=== PATIENT | female | born 1975 | race Caucasian/White ===

== ENCOUNTER 2016-05-15 10:09 | Emergency (ER) | payer OTHER ==
[2016-05-15 10:45] VITALS: BP 112/49
--- NOTE | 2016-05-15 11:05 | ERNOTE ---
Upper Extremity HPI - Narrative Date of Service: 05/15/16 - General Extremities Pain Location: wrist: right Time Seen by Provider: 05/15/16 10:46 Source: patient Exam Limitations: no limitations - Immun/Allergies/Home Medications Immunizations: IMMUNIZATION HX Immunizations Up to Date Yes History of Influenza Vaccine Yes Hx Pneumococcal Vaccination No Allergies/Adverse Reactions: Allergies Allergy/AdvReac Type Severity Reaction Status Date / Time No Known Allergies Allergy Verified 05/15/16 10:45 Home Medications: HOME MEDICATIONS Albuterol Sulfate [Ventolin HFA] 2 puff IH Q4H PRN 10/02/15 [Last Taken Unknown] Aspirin [Aspirin EC] 81 mg PO DAILY 10/02/15 [Last Taken Unknown] Clopidogrel Bisulfate [Plavix] 75 mg PO DAILY #30 tab 10/02/15 [Last Taken Unknown] Glipizide 10 mg PO DAILY 10/02/15 [Last Taken Unknown] Insulin Aspart [Novolog Flexpen] 35 unit SQ AC 10/02/15 [Last Taken Unknown] Insulin Detemir [Levemir] 100 unit SQ BID 10/02/15 [Last Taken Unknown] Isosorbide Mononitrate [Imdur] 30 mg PO DAILY #30 tab 10/02/15 [Last Taken Unknown] Levonorgestrel [Mirena] 1 each IY ONCE 10/02/15 [Last Taken Unknown] Nitroglycerin [Nitrostat] 0.4 mg SL Q5MIN PRN 10/02/15 [Last Taken Unknown] Venlafaxine HCl 50 mg PO BID 10/02/15 [Last Taken Unknown] metFORMIN HCL [Glucophage] 1,000 mg PO BID 10/02/15 [Last Taken Unknown] - History of Present Illness Narrative: Pt. come in with c/o wrist pain that began four days ago when she was vacuuming her carpet. Pt. denies any SOB, CP, NVD, numbness but does state that the pain radiates to her R elbow with movement and makes her third and fourth finger tingly. Review of Systems - Review of Systems Constitutional: Present: no symptoms reported. Absent: recent illness, fever, chills, fatigue, malaise EYE: Present: no symptoms reported ENT: Present: no symptoms reported. Absent: ear pain, ear discharge, nose congestion, nasal drainage, sore throat, throat swelling Respiratory: Present: no symptoms reported. Absent: shortness of breath, cough , wheezing Cardiology: Present: no symptoms reported. Absent: chest pain, palpitations, edema Gastrointestinal/Abdominal: Present: no symptoms reported. Absent: nausea, vomiting, diarrhea Genitourinary: Present: no symptoms reported Musculoskeletal: Present: muscle pain - R forearm and elbow, joint pain - R wrist. Absent: back pain Skin: Present: no symptoms reported Neurological: Present: no symptoms reported. Absent: headache, dizziness/light- headedness, numbness, tingling All Other Systems: All systems neg except as marked - Patient's Past Medical History Patient History - Medical: Diabetes Type 2, GERD Patient History - Cancer: No Hx of Cancer Patient History - Surgical Procedures: Appendectomy - Family History Mother Family History - Medical: No pertinent hx Father Family History - Medical: - Social History Living Situations: home Smoking Status: Former smoker Have you smoked in the past 12 months: Yes Alcohol Use: none Drug Use: none Physical Exam - Physical Exam General Appearance: Present: wd/wn, alert, no apparent distress Eye Exam: Normal inspection: bilateral, PERRL: bilateral, EOMI: bilateral Ears, Nose, Throat: Present: normal ENT inspection, hearing grossly normal, normal pharynx Neck: Present: normal inspection, nontender. Absent: lymphadenopathy (R), lymphadenopathy (L) Respiratory: Present: no respiratory distress, normal breath sounds, no accessory muscle use, chest nontender, lungs clear Cardiovascular/Chest: Present: regular rate, rhythm, no murmur, normal peripheral pulses Gastrointestinal/Abdominal: Present: normal bowel sounds, nontender, nondistended, soft, no organomegaly Back Exam: Present: normal inspection, normal range of motion, no CVA tenderness , no vertebral tenderness Extremity Exam: Present: no edema, normal range of motion, other - ulnar nerve pain with movement Neurological Exam: Present: alert, oriented, normal mood/affect, no motor/ sensory deficits Skin Exam: Present: normal color, warm/dry. Absent: pallor, skin rash ED Progress - Vital Signs Patient's Vital Signs:: I have reviewed the patient's vital signs. Vital Signs: Vital Signs 05/15/16 10:42 Temperature 36.3 C L Pulse Rate 78 Respiratory 14 Rate Blood Pressure 112/49 O2 Sat by Pulse 95 Oximetry - Progress/Reassessment Chief Complaint: Wrist Injury/Pain Departure Clinical Impression: Carpal tunnel syndrome of right wrist - Departure Disposition: Home self-care Condition: Good Instructions: Carpal Tunnel Syndrome, [id number] Additional Instructions: Please take either 440mg of Naproxen BID or Ibuprofen 800mg every 8 hours as needed for pain. Please wear wrist brace at all times when awake. Referrals: Celeste Andres MD [Primary Care Provider] -
== END 2016-05-15 11:15 | disposition home or self-care (01) ==
LOC: ER 10:09
PROC: 2W3DX1Z Immobilization of Left Lower Arm using Splint (ICD-10-PCS; principal; 2016-05-15)
DX: G56.01 Carpal tunnel syndrome, right upper limb (principal); Z87.891 Personal history of nicotine dependence; E11.9 Type 2 diabetes mellitus without complications; Z79.4 Long term (current) use of insulin; Y93.E3 Activity, vacuuming

== ENCOUNTER 2016-06-18 22:07 | Emergency (ER) | payer OTHER ==
[2016-06-18] MEDS ORDERED: FAMOTIDINE 10 MG/ML VIAL IV ONE ×2 (22:30→22:33)
[2016-06-18] MEDS ORDERED: METHYLPREDNISOLONE SOD SUCC/PF 40 MG/ML VIAL IV ONE (22:30)
[2016-06-18] MEDS ORDERED: diphenhydrAMINE HCL 50 MG/ML VIAL IV ONE (22:31)
[2016-06-18] MEDS ORDERED: diphenhydrAMINE HCL 50 MG/ML VIAL ONE (22:32)
[2016-06-18] MEDS ORDERED: METHYLPREDNISOLONE SOD SUCC/PF 125 MG/2 ML VIAL ONE (22:33)
--- NOTE | 2016-06-18 22:44 | ERNOTE ---
Allergy Symptoms - ER Date of Service: 06/18/16 Presenting Symptoms: face swelling Time Seen by Provider: 06/18/16 22:30 Immunizations: IMMUNIZATION HX Immunizations Up to Date Yes History of Influenza Vaccine Yes Hx Pneumococcal Vaccination No Allergies/Adverse Reactions: Allergies No Known Allergies Allergy (Verified 05/15/16 10:45) Home Medications: HOME MEDICATIONS Albuterol Sulfate [Ventolin HFA] 2 puff IH Q4H PRN 10/02/15 [Last Taken Unknown] Aspirin [Aspirin EC] 81 mg PO DAILY 10/02/15 [Last Taken Unknown] Clopidogrel Bisulfate [Plavix] 75 mg PO DAILY #30 tab 10/02/15 [Last Taken Unknown] Insulin Aspart [Novolog Flexpen] 35 unit SQ AC 10/02/15 [Last Taken Unknown] Insulin Detemir [Levemir] 50 unit SQ BID 10/02/15 [Last Taken Unknown] Isosorbide Mononitrate [Imdur] 30 mg PO DAILY #30 tab 10/02/15 [Last Taken Unknown] Levonorgestrel [Mirena] 1 each IY ONCE 10/02/15 [Last Taken Unknown] Nitroglycerin [Nitrostat] 0.4 mg SL Q5MIN PRN 10/02/15 [Last Taken Unknown] Venlafaxine HCl 50 mg PO BID 10/02/15 [Last Taken Unknown] metFORMIN HCL [Glucophage] 1,000 mg PO BID 10/02/15 [Last Taken Unknown] - History of Present Illness Narrative: Had Taco petersen 20 minutes ago and now feels like her throat is closing. Pt is speaking without stridor. She does have a dry cough Review of Systems - Review of Systems Constitutional: Present: See HPI ENT: Present: See HPI Respiratory: Present: See HPI - Patient's Past Medical History Patient History - Medical: Diabetes Type 2, GERD Patient History - Cardiac/Respiratory: Coronary Heart Disease, COPD Patient History - Cancer: No Hx of Cancer Patient History - Surgical Procedures: Appendectomy, Cardiac stent Patient History - Other: None - Family History Mother Family History - Medical: No pertinent hx Father Family History - Medical: - Social History Living Situations: home Abuse History: No History of abuse Psych History: No pertinent hx Smoking Status: Former smoker Have you smoked in the past 12 months: Yes Do you dip or chew tobacco: No Patient requests Smoking Cessation Consult: No Initiate information on Smoking Cessation: No Alcohol Use: none Drug Use: none - Immunizations Immunizations Up to Date: Yes Hx Pneumococcal Vaccination: No History of Influenza Vaccine: Yes Physical Exam - Physical Exam General Appearance: Present: wd/wn, alert, no apparent distress Ears, Nose, Throat: Present: hearing grossly normal, normal pharynx, other - minimal swelling of lips noted, no stridor, excellent airway. no wheezing. no distress Neck: Present: normal inspection Respiratory: Present: no respiratory distress, normal breath sounds, no accessory muscle use, chest nontender Cardiovascular/Chest: Present: regular rate, rhythm Gastrointestinal/Abdominal: Present: normal bowel sounds Neurological Exam: Present: other - appears anxious ED Progress - Vital Signs Patient's Vital Signs:: I have reviewed the patient's vital signs. Vital Signs: Vital Signs 06/18/16 06/18/16 22:14 22:24 Temperature 36.5 C Pulse Rate 122 H Respiratory 18 20 Rate Blood Pressure 107/65 O2 Sat by Pulse 97 97 Oximetry - Progress/Reassessment Chief Complaint: Allergic Reaction Departure Clinical Impression: Allergic reaction Qualifiers: Encounter type: initial encounter Qualified Code(s): T78.40XA - Allergy, unspecified, initial encounter - Departure Disposition: Home self-care Referrals: Celsete Andres MD [Primary Care Provider] -
[2016-06-19 00:35] VITALS: BP 111/63
== END 2016-06-19 00:35 | disposition home or self-care (01) ==
LOC: ER 22:07
DX: T78.40XA Allergy, unspecified, initial encounter (principal); Z87.891 Personal history of nicotine dependence; E11.9 Type 2 diabetes mellitus without complications; Z79.4 Long term (current) use of insulin; I51.9 Heart disease, unspecified; J44.9 Chronic obstructive pulmonary disease, unspecified

== ENCOUNTER 2016-08-11 07:05 | Day surgery (SDC) | payer OTHER ==
[~2016-08-11 07:05] MED LIST: RINGERS SOLUTION,LACTATED 1,000 ML IV PRN; ceFAZolin SODIUM 1 GM VIAL IV PRN
--- OUTSIDE RECORDS SUMMARY | 2016-08-11 07:09 | XMS REPORT | Continuity of Care Document ---
:1975 Author Organization [facility] ([facility]) Address [address] [place] [address] Phone [phone] Care Team Providers Name Role Phone Celeste Andres Primary Care Provider [phone] Source Comments This disclosure is being made pursuant to the Care Everywhere program, applicable federal and state laws, and may not contain all informaitonavailable regarding this patient.[facility] ([facility]) Active Allergies and Adverse Reactions Allergen Noted Date Severity Reactions Comments Cat Hair 04/01/2013 OTHER Sneezing and coughing Sitagliptin 04/30/2010 OTHER Leg swelling and numbness Current Medications Prescription Sig. Disp. Refills Start End Status Date Date levonorgestrel use in your uterus Active (MIRENA) 20 mcg/24 once. hr device aspirin 81 mg Take 1 Tab by mouth 60 Tab 5 Active chewable tablet daily. OTC 1 Indications: DM 2 SUPPLY insulin Use to inject 120 Syringe 3 Active syringe w/ needle insulin four times 4 U-100 (INSULIN daily Indications: SYRINGE) 0.5 mL 30 TYPE 2 DIABETES g x 09/26" MELLITUS SUPPLY insulin inject 100 Syringe 11 Active syringe w/ needle subcutaneously 2 4 U-100 0.3 mL 30 g times daily. x 09/26" Indications: TYPE 2 DIABETES MELLITUS venlafaxine 50 mg Take 1 Tab by mouth 120 Tab 3 Active tablet 2 times daily. 4 Indications: NEUROPATHIC PAIN albuterol 90 Use 2 Puffs by 1 Inhaler 11 Active mcg/Actuation inhalation every 6 4 inhaler hours as needed. Indications: CHRONIC OBSTRUCTIVE PULMONARY DISEASE atorvastatin 40 mg Take 1 Tab by mouth 90 Tab 3 Active tablet every evening. 4 Indications: HYPERCHOLESTEROLEMI A, PREVENTION OF CEREBROVASCULAR ACCIDENT fluticasone 50 Use 2 sprays in 16 g Active mcg/Actuation each nostril daily. 5 nasal spray Indications: CHRONIC NON-ALLERGIC RHINITIS nitroglycerin 0.[address] 1 tablet (0.4 25 tablet 2 Active mg SL tablet mg total) under the 6 tongue every 5 minutes as needed. Maximum of 3 tablets in 15 minutes insulin detemir Inject 50 Units Active (LEVEMIR) 100 subcutaneously 2 6 unit/mL injection times daily. vial insulin aspart Inject 14-26 Units Active (NovoLOG) 100 subcutaneously 3 6 unit/mL injection times daily before vial meals. 14 units before every meals (3x per day)PLUS 2-12 units based on blood sugarsGLUCOSE LEVEL (mg/dl)150-199 give 2 [id number] give 4 [id number] give 6 [id number] give 8 [id number] or Greater give 10 units metoPROLol Take 0.5 tablets 30 tablet Active tartrate 25 mg (12.5 mg total) by 6 tablet mouth every 12 hours. pantoprazole 40 mg Take 1 tablet (40 30 tablet Active EC tablet mg total) by mouth 6 daily. omeprazole 40 mg 3 Active enteric coated 6 capsule SUPPLY lancets Use as directed 4 150 Each Active (UNILET) 30 gauge times daily. Use 6 twice daily or as directed. Indications: DIABETES MELLITUS clopidogrel 75 mg Take 1 tablet (75 30 tablet Active tablet mg total) by mouth 6 daily. nicotine 21 mg/24 0 Active hr patch 6 metFORMIN 1,000 mg Take one tablet 180 tablet 2 Active tablet with dinner for 1 6 week then increase to one tablet twice a day nystatin 100,000 APPLY TO AFFECTED 0 Active unit/g powder AREA TOPICALLY 6 DAILY SUPPLY FREESTYLE Use once daily. 1 Each 0 Active LITE meter 7 SUPPLY FREESTYLE Use as directed 4 150 Each Active LITE test strips times daily. 7 SUPPLY insulin Use with insulin 300 Syringe Active syringe w/ needle three times daily 7 U-100 0.5 mL 31 g x 1564" SUPPLY insulin Use with insulin 200 Syringe 3 Active syringe w/ needle two times daily 7 U-100 1 mL 31 g x 1564" HUMALOG 100 INJECT 18 UNITS 2 Active unit/mL injection BEFORE EACH MEAL 6 vial PLUS SLIDING SCALE BD INSULIN SYRINGE Use as directed. 0 Active ULTRA-FINE 1 mL 31 7 g x 5/16" irbesartan 75 mg Take 37.5 mg by Active tablet mouth daily. cetirizine 10 mg Take 1 tablet (10 30 tablet 11 Active tablet mg total) by mouth 7 daily. isosorbide Take 0.5 tablets 30 tablet 6 Active mononitrate 30 mg (15 mg total) by 7 CR tablet mouth every morning. irbesartan 75 mg Take 1 tablet (75 30 tablet 11 Discontinued tablet mg total) by mouth 6 017 daily. isosorbide Take 0.5 tablets 45 tablet 3 Discontinued mononitrate 30 mg (15 mg total) by 6 017 CR tablet mouth every morning. Active Problems Problem Noted Date Recurrent chest pain 10/06/2015 Typical angina 10/06/2015 Coronary artery disease involving nikolai coronary artery of nikolai heart 10/05 with unstable angina pectoris S/P drug eluting coronary stent placement 10/06/2015 Positive cardiac stress test 10/04/2015 Esophageal reflux 03/26/2014 Mixed incontinence 03/12/2014 Urgency incontinence 03/12/2014 Frequency 03/12/2014 Essential hypertension 12/18/2013 Non-proliferative diabetic retinopathy 04/01/2013 High myopia with early presbyopia 04/01/2013 Unspecified essential hypertension 03/18/2013 Mixed hyperlipidemia 03/18/2013 Constipation 03/18/2013 Diabetic neuropathy 06/27/2012 Diabetes mellitus type 2, uncontrolled 06/27/2012 Tobacco use disorder 04/30/2010 Overview: chantix 'changed my moods' Cold turkey 'does not work' Willing to try wellbutrin Routine health maintenance 04/30/2010 Overview: Pap- 2009 Done locally Flu-declines Smoking- see above Lipids/glucose 04/22 tdap- 2005 Most Recent Encounters Date Type Specialty Providers Description 07/26/2016 Telephone [facility] and V[facility] Aissatou Kirk DO 07/19/2016 Office Visit [facility] Aissatou Kirk Dx: Hyperlipemia, S, DO mixed (Primary Dx) 07/07/2016 Telephone Diabetes Services Gracie David, Chief Comp: Follow-up RN 07/07/2016 Refill Diabetes Services Estephanie Howard MD Dx: Diabetes mellitus type 2, uncontrolled (Primary Dx) 07/07/2016 Pharmacy Visit 06/20/2016 Office Visit Diabetes Services Estephanie Howard MD Subj: Upcoming Appt Reminder Immunizations Name Dates Previously Given Next Due Influenza, quadrivalent PF 03/26/2014 Social History Tobacco Use Types Packs/Day Years Used Date Former Smoker Cigarettes 0.5 23 Smokeless Tobacco: Never Used Tobacco Cessation:Counseling Given: Yes Comments:Smoked 2 PPD for 22 years. Now down to 0.5PPD for the last year. Vapor/Patches Alcohol Use Drinks/Week oz/Week Comments No 0 Standard drinks or equivalent 0.0 Last Filed Vital Signs Vital Sign Reading Time Taken Blood Pressure 80/50 07/19/2016 9:32 AM [employer]IC [employer] Pulse 80 07/19/2016 9:32 AM [employer] TE[employer] Temperature 36.7 C (98.1 F) 10/06/2015 7:38 AM CDT Respiratory Rate 16 10/06/2015 7:38 AM CDT Height 1.702 m (5' 7") 07/19/2016 9:32 AM [employer] TE[employer] Weight 90.719 kg (200 lb) 07/19/2016 9:32 AM [employer] TE[employer]ER Body Mass Index 31.32 07/19/2016 9:32 AM [employer] TE[employer]ER Oxygen Saturation 96% 10/06/2015 10:13 AM CDT Plan of Care Patient Goal Type Goal Weight Weight below 91 kg (200 lb) Result Component % HBA1C below 7.0 Lifestyle Increase physical activity Date Type Specialty Providers Description 08/28/2016 Wait List Diabetes Services 08/28/2016 Appointment Diabetes Services Estephanie Howard MD Subj: Appointment [address] [place] [address] [phone] (Fax) 09/13/2016 Appointment Heart [facility] V[facility] Aissatou Kirk, Subj: Appointment DO Scheduled [address] [place] [address] [phone] (Fax) Health Maintenance Due Date Last Done Comments Hepatitis B Vaccine (1 of 3 - 1975 Primary Series) MMR Vaccine 1992 Pneumococcal Vaccine (1 of 1 1993 - PPSV23) DIABETIC: Retinal Eye Exam 04/01/2014 04/01/2013, 04/01/2013 Mammogram 2014 DIABETIC: Cholesterol 08/07/2014 08/07/2013, Additional history exists 05/13/2013, 03/18/2013 Diabetic: Hdl 08/07/2014 08/07/2013, Additional history exists 05/13/2013, 03/18/2013 Diabetic: Ldl 08/07/2014 08/07/2013, Additional history exists 05/13/2013, 03/18/2013 DIABETIC: Triglycerides 08/07/2014 08/07/2013, Additional history exists 05/13/2013, 03/18/2013 Influenza Vaccine: Seasonal 12/13/2015 03/26/2014 (#1) DIABETIC: Hemoglobin A1C 06/16/2016 12/15/2015, Additional history exists 09/01/2015, 04/21/2014 DIABETIC: Foot Exam 08/31/2016 09/01/2015, Additional history exists 08/07/2013, 08/07/2013 DIABETIC: Microalbumin 12/14/2016 12/15/2015, Additional history exists 09/01/2015, 04/21/2014 Td Vaccine 01/31/2017 01/31/2007 Cervical Cancer Screening 09/17/2018 09/17/2013 Tdap Vaccine Addressed 04/11/2011 Overridden with the (Previously intention of not completed) completing the topic Results from Last 3 Months Not on file
[2016-08-11] MEDS ORDERED: BUPIVACAINE HCL 50 ML VIAL IJ ONE ×2 (09:37)
--- NOTE | 2016-08-11 10:52 | OR ---
Operative Report - Dictated Report Narrative: Date: 08/11/2016 Physician: Colton Cordova M.D. Couture Dressmaker: Gerry Moore PA-C Preoperative diagnosis: Right cubital tunnel syndrome Postoperative diagnosis: Right cubital tunnel syndrome Procedure: Right ulnar nerve decompression at the cubital tunnel Anesthesia: General Plus local Complications: None Estimated blood loss: Minimal Tourniquet time: 15 Minutes at 250 mmHg Specimens: None Retained implants: None Drains: None Indications: Mrs. Alexander Is a 41-year-old female who has been followed in my clinic with complaints of cubital tunnel syndrome. Physical exam as well as diagnostic testing showed compression of the ulnar nerve compatible with cubital tunnel syndrome. Conservative measures had failed including, but not limited to, activity modification, medications, and/or splinting. The risks, benefits, and alternatives were discussed in clinic. The risks being bleeding, infection, nerve, tendon, blood vessel injury, persistent pain, wound competitions, weakness, palm pain, need for additional procedures, and persistent symptoms. Consent was obtained in the clinic. Procedure: After marking the correct extremity in the preoperative holding area, a timeout was performed in the operating room. IV antibiotics consisting of Ancef were administered prior to the procedure. A well-padded tourniquet was applied to the operative upper arm. The arm was exsanguinated and the tourniquet was inflated to 250 mmHg. 0.5% Marcaine without epinephrine was infused into the projected incision site over the medial elbow. Using loupe magnification, a longitudinal incision centered over the cubital tunnel was made approximately 5 centimeters in length. Blunt dissection was carried down to the subcutaneous tissues using bipolar cautery for hemostasis. Care was taken to protect the identified underlying cutaneous nerves. The ulnar nerve was identified as it passed through the medial intermuscular septum along the distal triceps. A release of the canal in this area as the ulnar nerve passed anterior to posterior was performed in order to decompress the nerve at this site. The nerve was dissected releasing the overlying soft tissues while maintaining the vascularity of the nerve down to the area of the medial epicondyles and Mckenzie' s ligament. The nerve was completely decompressed as it passed posterior to the medial condyle and was followed into the flexor carpi ulnaris. The deep fascia of the flexor carpi ulnaris muscle was released in order to decompress the nerve at this site. The first branch of the ulnar nerve was protected as well as any identified recurrent branches. The elbow was placed through range of motion and it was noted that the nerve was not unstable nor did it appear to be under tension as it passed behind the medial epicondyle. For this reason it was not felt that a transposition was not necessary. Once it was felt that we had completely released the compressive structures on the ulnar nerve, the wound was thoroughly irrigated and the tourniquet was deflated. Hemostasis was obtained using pressure and bipolar cautery. Once adequate hemostasis was in place local anesthetic was placed in the skin edges, and the subcutaneous tissue was closed with interrupted Vicryl. The skin was closed with 4-0 nylon and sterile dressings consisting of Xeroform, 4 x 4, soft roll, and a forearm Jed wrap was applied. All sponge, needle, blade, and instrument counts were correct prior to closing the wounds. The patient was awoken and transferred to the postanesthesia care unit in stable condition.
[2016-08-11 11:38] VITALS: BP 115/55
== END 2016-08-11 07:06 | disposition home or self-care (01) ==
LOC: AMB 07:05
PROVIDERS: ATTEND Orthopaedic Surgery
PROC: 01N40ZZ Release Ulnar Nerve, Open Approach (ICD-10-PCS; principal; 2016-08-11 09:15)
DX: G56.21 Lesion of ulnar nerve, right upper limb (principal); E10.9 Type 1 diabetes mellitus without complications; I10 Essential (primary) hypertension; E78.5 Hyperlipidemia, unspecified; J44.9 Chronic obstructive pulmonary disease, unspecified; J45.909 Unspecified asthma, uncomplicated; Z87.891 Personal history of nicotine dependence; Z68.33 Body mass index [BMI] 33.0-33.9, adult

== ENCOUNTER 2016-09-27 13:56 | Emergency (ER) | payer OTHER ==
--- OUTSIDE RECORDS SUMMARY | 2016-09-27 14:32 | XMS REPORT | Continuity of Care Document ---
:1975 Author Organization [facility] ([facility]) Address [place] [address] Phone [phone] Care Team Providers Name Role Phone Celeste Andres Primary Care Provider [phone] Source Comments This disclosure is being made pursuant to the Care Everywhere program, applicable federal and state laws, and may not contain all informaitonavailable regarding this patient.[facility] ([facility]) Active Allergies and Adverse Reactions Allergen Noted [...] 5 nasal spray Indications: CHRONIC NON-ALLERGIC RHINITIS insulin detemir Inject 50 Units Active (LEVEMIR) 100 subcutaneously 2 6 unit/mL injection times daily. vial metoPROLol Take 0.5 tablets 30 tablet Active tartrate 25 mg (12.5 mg total) by 6 tablet mouth every 12 hours. pantoprazole 40 mg Take 1 tablet (40 30 tablet Active EC tablet mg total) by mouth 6 daily. SUPPLY lancets Use as directed 4 150 Each Active (UNILET) 30 gauge times daily. Use 6 twice daily or as directed. Indications: DIABETES MELLITUS clopidogrel 75 mg Take 1 tablet (75 30 tablet Active tablet mg total) by mouth 6 daily. metFORMIN 1,000 mg Take one tablet 180 tablet Active tablet with dinner for 1 6 week then increase to one tablet twice a day SUPPLY FREESTYLE Use once daily. 1 Each 0 Active LITE meter 7 SUPPLY FREESTYLE Use as directed 4 150 Each Active LITE test strips times daily. 7 SUPPLY insulin Use with insulin 300 Syringe Active syringe w/ needle three times daily 7 U-100 0.5 mL 31 g x 15/64" SUPPLY insulin Use with insulin 200 Syringe Active syringe w/ needle two times daily 7 U-100 1 mL 31 g x 15/64" BD INSULIN SYRINGE Use as directed. 0 Active ULTRA-FINE 1 mL 31 7 g x 5/16" irbesartan 75 mg Take 75 mg by mouth Active tablet daily. cetirizine 10 mg Take 1 tablet (10 30 tablet Active tablet mg total) by mouth [address] 1 tablet (0.4 25 tablet 2 Active mg SL tablet mg total) under the 7 tongue every 5 minutes as needed. Maximum of 3 tablets in 15 minutes isosorbide Take 1 tablet (30 30 tablet 6 Active mononitrate 30 mg mg total) by mouth 7 CR tablet every morning. furosemide 20 mg Take 1 tablet (20 30 tablet 6 Active tablet mg total) by mouth 7 daily. insulin lispro Inject Active (HumaLOG) 100 subcutaneously 3 unit/mL injection times daily before vial meals. Sliding scale clopidogrel 75 mg Take 1 tablet (75 30 tablet 11 Active tablet mg total) by mouth 7 daily. traMADol 50 mg Take 1 tablet (50 15 tablet 0 Active tablet mg total) by mouth 7 4 times daily as needed. nitroglycerin 0.4 Place 1 tablet (0.4 25 tablet 2 Discontinued mg SL tablet mg total) under the 6 017 tongue every 5 minutes as needed. Maximum of 3 tablets in 15 minutes insulin aspart Inject 14-26 Units 11 Discontinued (NovoLOG) 100 subcutaneously 3 6 017 unit/mL injection times daily before vial meals. 14 units before every meals (3x per day)PLUS 2-12 units based on blood sugarsGLUCOSE LEVEL (mg/dl)150-199 give 2 [id number] give 4 [id number] give 6 -527 give 8 [id number] or Greater give 10 units omeprazole 40 mg 3 Discontinued enteric coated 6 017 capsule nicotine 21 mg/24 0 Discontinued hr patch 6 017 nystatin 100,000 APPLY TO AFFECTED 0 Discontinued unit/g powder AREA TOPICALLY 6 017 DAILY HUMALOG 100 INJECT 18 UNITS 2 Discontinued unit/mL injection BEFORE EACH MEAL 6 017 vial PLUS SLIDING SCALE isosorbide Take 0.5 tablets 30 tablet 6 Discontinued mononitrate 30 mg (15 mg total) by 7 017 CR tablet mouth every morning. oxyCODONE-acetamin Take by mouth every 0 Discontinued ophen 5-325 mg per 4 hours as needed. 7 017 tablet Active Problems Problem Noted Date Recurrent chest pain 10/06/2015 Typical angina 10/06/2015 Coronary artery disease involving [place] coronary artery of [place] heart 10/05 with unstable angina pectoris S/P [...] Recent Encounters Date Type Specialty Providers Description 09/27/2016 Pharmacy Visit 09/20/2016 Office Visit Diabetes Services Estephanie Howard, Subj: Appointment MD Canceled 09/18/2016 Refill Cardiac [facility] Dx: Pain of left Rehabilitation Aissatou Motley DO upper extremity (Primary Dx) 09/15/2016 Nurse Triage Care Coordination Andreia Patino Chief Comp: HEBER Alexis RNvolunteer coordinator Follow-up Call 09/14/2016 Telephone Cardiology Khadra Peterson Chief Comp: GERMAN Dinero Follow-up 09/13/2016 Office Visit Heart and Vascular [facility] Subj: Appointment Aissatou Motley DO Scheduled 09/13/2016 Pharmacy Visit 09/12/2016 Telephone Diabetes Services Estephanie Howard, Dx: Poorly MD controlled type 2 diabetes mellitus (Primary Dx) 09/11/2016 - [facility] Misha Baugh, Dx: S/P drug 09/12/2016 Encounter Inpatient - Adult MD eluting coronary stent placement (Primary Dx) 09/11/2016 Surgery Cardiology Camille Coronary Claudia Fernandes MD Angiography 09/08/2016 Telephone Cardiology Khadra Peterson Chief Comp: GERMAN Dinero Information Before Appointment 09/06/2016 Office Visit Heart and V[facility] Dx: Chest pain Aissatou S DO (Primary Dx) 09/05/2016 Office Visit Diabetes Services Estephanie Howard, Dx: Non-proliferative diabetic retinopathy (Primary Dx) 09/05/2016 Telephone Cardiac Daniel Kirk DO 08/30/2016 Pharmacy Visit 08/30/2016 Telephone Heart and Vascular ReaganDeaAissatou S, DO 08/30/2016 Refill Heart and Vascular [facility], Dx: Coronary artery Aissatou Motley DO disease involving [place] coronary artery of [place] heart, angina presence unspecified (Primary Dx) 08/28/2016 Office Visit Diabetes Services Estephanie Howard, Dx: Type 2 diabetes MD mellitus with microalbuminuria, with long-term current use of insulin (Primary Dx) 07/26/2016 Telephone Heart and Vascular Aissatou Kirk DO 07/19/2016 Office Visit Heart and Vascular [facility], Dx: Hyperlipemia, Aissatou Motley DO mixed (Primary Dx) 07/07/2016 Telephone Diabetes Services Gracie David Chief Comp: GERMAN Newton Follow-up 07/07/2016 Refill Diabetes Services Estephanie Howard, Dx: Diabetes MD mellitus type 2, uncontrolled (Primary Dx) 07/07/2016 Pharmacy Visit Immunizations Name Dates Previously Given Next Due [...] Vital Sign Reading Time Taken Blood Pressure 111/60 09/12/2016 9:13 AM CDT Pulse 81 09/12/2016 9:13 AM CDT Temperature 35.1 C (95.2 F) 09/12/2016 7:42 AM CDT Respiratory Rate 16 09/12/2016 7:42 AM CDT Height 1.702 m (5' 7") 09/11/2016 5:30 PM CDT Weight 90.719 kg (200 lb) 09/11/2016 5:30 PM CDT Body Mass Index 31.32 09/11/2016 5:30 PM CDT Oxygen Saturation 93% 09/12/2016 9:13 AM CDT Plan of Care Patient Goal Type Goal Weight Weight below 91 kg (200 lb) Result Component % HBA1C below 7.0 Lifestyle Increase physical activity Date Type Specialty Providers Description 10/02/2016 Appointment Cardiac Rehabilitation Scott Ramirez MD [address] [place] [address] [phone] (Fax) Subj: Upcoming Appt SilverAissatou pisano DO Tiesha [address] [place] [address] [phone] (Fax) Reminder Health Maintenance Due Date Last Done Comments Hepatitis B Vaccine (1 of 3 - 1975 Primary Series) MMR Vaccine 1992 Pneumococcal Vaccine (1 of 1993 - PPSV23) DIABETIC: Retinal Eye Exam 04/01/2014 04/01/2013, 04/01/2013 Mammogram 2014 DIABETIC: Cholesterol 08/07/2014 08/07/2013, Additional history exists 05/13/2013, 03/18/2013 Diabetic: Hdl 08/07/2014 08/07/2013, Additional history exists 05/13/2013, 03/18/2013 Diabetic: Ldl 08/07/2014 08/07/2013, Additional history exists 05/13/2013, 03/18/2013 DIABETIC: Triglycerides 08/07/2014 08/07/2013, Additional history exists 05/13/2013, 03/18/2013 DIABETIC: Hemoglobin A1C 06/16/2016 12/15/2015, Additional history exists 09/01/2015, 04/21/2014 DIABETIC: Foot Exam 08/31/2016 09/01/2015, Additional history exists 08/07/2013, 08/07/2013 Influenza Vaccine: Seasonal 12/12/2016 03/26/2014 (Season Ended) DIABETIC: Microalbumin 12/14/2016 12/15/2015, Additional history exists 09/01/2015, 04/21/2014 Td Vaccine 01/31/2017 01/31/2007 Cervical Cancer Screening 09/17/2018 09/17/2013 Tdap Vaccine Addressed 04/11/2011 Overridden with the (Previously intention of not completed) completing the topic Results from Last 3 Months BLOOD GLUCOSE, BEDSIDE (09/12/2016 7:39 AM)Only the most recent of4 resultswithin the time period is included. Component Value Range Glucose, Accu-Chek 185(H) 65-99 mg/dL Specimen Blood, capillary CREATININE (09/12/2016 4:39 AM)Only the most recent of2 resultswithin the time period is included. Component Value Range Creatinine 0.6Comment: 0.5-1.0 mg/dL Creatinine switched to enzymatic method on 09/20/2010.GFR equation switched to IDMS-traceable MDRD equation on 09/20/2010. Calculated GFR values are not valid in clinical settings where serum creatinine is changing. Calculated GFR >90 >60 mL/min/1.73 m2 Specimen Blood HEMOGLOBIN (09/12/2016 4:39 AM) Component Value Range Hemoglobin 14.1 11.9-15.5 g/dL Specimen Whole Blood POTASSIUM (09/12/2016 4:39 AM)Only the most recent of2 resultswithin the time period is included. Component Value Range Potassium 4.6 3.5-5.0 mEq/L Specimen Blood ECG - EKG 12 LEAD (09/11/2016 12:41 PM) Component Value Range ECG SEVERITY - OTHERWISE NORMAL ECG - VENT. RATE 60 bpm RR 1000 ms P-R INTERVAL 200 ms QRSD INTERVAL 70 ms QT INTERVAL 408 ms QTC INTERVAL 408 ms P AXIS 49 degrees QRS AXIS 28 degrees T WAVE AXIS 62 degrees REPORT SINUS RHYTHM [Remains] BORDERLINE FIRST DEGREE AV BLOCK NO SIGNIFICANT CHANGE Interpreting Physician: Singh Lomax MD CARDIAC CATHETERIZATION (09/11/2016 12:07 PM) Narrative Normal LVEDP Mid LAD ISR of previous stent, otherwise no obstructive coronary disease Successful PCI with single CATE to mid LAD ISR and balloon angioplasty to first diagonal ostium. BLOOD UREA NITROGEN (09/11/2016 10:08 AM) Component Value Range BUN 10 10-20 mg/dL Specimen Blood CBC (COMPLETE BLOOD COUNT) (09/11/2016 10:08 AM) Component Value Range WBC Count 11.7(H) 3.7-10.5 K/MM3 RBC Count 4.82 4.00-5.20 M/MM3 Hemoglobin 14.8 11.9-15.5 g/dL Hematocrit 46 35-47 % MCV (Mean Corpuscular Volume) 94 82-99 FL MCH (Mean Corpuscular Hemoglobin) 31 25-35 PG MCHC (Mean Corpuscular Hemoglobin Concentration) 33 32-36 % Platelet Count 268 150-400 K/MM3 MPV (Mean Platelet Volume) 11.5 9.4-12.3 FL RBC Dist Width-STD 44.0 36.4-46.3 FL RBC Distrib Width 12.6 9.0-14.5 % Nucleated RBC 0 /100 WBC Specimen Whole Blood CHLORIDE (09/11/2016 10:08 AM) Component Value Range Chloride 98 95-107 mEq/L Specimen Blood SODIUM (09/11/2016 10:08 AM) Component Value Range Sodium 138 135-145 mEq/L Specimen Blood
--- NOTE | 2016-09-27 14:36 | ERNOTE ---
Lower Extremity HPI - General Lower Extremities Pain: foot: left, ankle: left Time Seen by Provider: 09/27/16 14:22 Source: patient Exam Limitations: no limitations - Immun/Allergies/Home Medications Immunizations: IMMUNIZATION HX Immunizations Up to Date Yes History of Influenza Vaccine Yes Hx Pneumococcal Vaccination Yes Allergies/Adverse Reactions: Allergies Allergy/AdvReac Type Severity Reaction Status Date / Time insulin glargine AdvReac Mild BURNING Verified 09/27/16 14:08 [From Lantus] AND REDNESS Home Medications: HOME MEDICATIONS Albuterol Sulfate [Ventolin HFA] 2 puff IH Q4H PRN 10/02/15 [Last Taken Unknown] Aspirin [Aspirin EC] 81 mg PO DAILY 10/02/15 [Last Taken Unknown] Clopidogrel Bisulfate [Plavix] 75 mg PO DAILY #30 tab 10/02/15 [Last Taken Unknown] Insulin Detemir [Levemir] 50 unit SQ BID 10/02/15 [Last Taken Unknown] Nitroglycerin [Nitrostat] 0.4 mg SL [id number] PRN 10/02/15 [Last Taken Unknown] Venlafaxine HCl 50 mg PO BID 10/02/15 [Last Taken Unknown] metFORMIN HCL [Glucophage] 1,000 mg PO BID 10/02/15 [Last Taken Unknown] Atorvastatin Calcium [Lipitor] 40 mg PO HS 08/09/16 [Last Taken Unknown] Cetirizine HCl [Zyrtec] 10 mg PO DAILY 08/09/16 [Last Taken Unknown] Insulin Lispro [Humalog] 20 unit SQ AC 08/09/16 [Last Taken Unknown] Irbesartan [Avapro] 37.5 mg PO DAILY 08/09/16 [Last Taken Unknown] Isosorbide Mononitrate [Imdur] 15 mg PO DAILY 08/09/16 [Last Taken 08/11/16] Levonorgestrel [Mirena] 1 each IY ONCE 08/09/16 [Last Taken Unknown] Metoprolol Tartrate [Lopressor] 12.5 mg PO BID 08/09/16 [Last Taken 08/11/16] Pantoprazole Sodium [Protonix] 40 mg PO DAILY 08/09/16 [Last Taken Unknown] oxyCODONE HCL/ACETAMINOPHEN [Percocet 5 MG/325 MG] 2 tab PO Q4H PRN #30 tablet 08/11/16 [Last Taken Unknown] - History of Present Illness Narrative: Patient was at home sitting when she suddenly noticed a sharp pain from her left heel up her leg, she then noticed bruising and swelling in the left ankle. She recently had a stent placed and is on plavix and aspirin. She is also an insulin dependent diabetic and has decreased feeling in both her legs from the knees down. She is not aware of any injuries. She is able to ambulate but with pain. Date (Duration): 09/26/16 Time (Timing): 20:00 Occurred: yesterday Location of Incident: home Method of Injury: Reports: no apparent injury Review of Systems - Review of Systems Constitutional: Present: recent illness. Absent: fever Respiratory: Absent: shortness of breath Cardiology: Absent: chest pain Gastrointestinal/Abdominal: Absent: nausea, vomiting Genitourinary: Present: no symptoms reported Musculoskeletal: Present: See HPI Skin: Present: See HPI Neurological: Absent: weakness, numbness - Patient's Past Medical History Patient History - Medical: Diabetes Type 2 Insulin Dependent, GERD, Other Patient History - Cardiac/Respiratory: Coronary Heart Disease, COPD, Hypertension, Hyperlipidemia Patient History - Cancer: No Hx of Cancer Patient History - Surgical Procedures: Appendectomy, Cardiac stent Patient History - Other: None LMP (females 10-50): mirena - Family History Mother Family History - Medical: No pertinent hx Family History - Cardiac/Respiratory: No pertinent hx Family History - Cancer: No pertinent family hx Father Family History - Medical: , Diabetes Type 2 Family History - Cardiac/Respiratory: Coronary Heart Disease, Hypertension Family History - Cancer: Lung, Stomach, Throat - Social History Living Situations: home Abuse History: No History of abuse Psych History: No pertinent hx Smoking Status: Current every day smoker Alcohol Use: none Drug Use: none - Immunizations Immunizations Up to Date: Yes Hx Pneumococcal Vaccination: Yes History of Influenza Vaccine: Yes Physical Exam - Physical Exam General Appearance: Present: wd/wn, alert, no apparent distress Respiratory: Present: no respiratory distress, normal breath sounds, no accessory muscle use, lungs clear Cardiovascular/Chest: Present: regular rate, rhythm, no murmur Extremity Exam: Present: other - minimal swelling and bruising over left medial malleolus, slight tenderness over medial malleolus and heel, normal ROM Neurological Exam: Present: alert, oriented, normal mood/affect, other - decrased sensation both feet Skin Exam: Present: normal color, warm/dry ED Progress - Vital Signs Patient's Vital Signs:: I have reviewed the patient's vital signs. Vital Signs: Vital Signs 09/27/16 14:03 Temperature 36.3 C L Pulse Rate 84 Respiratory 14 Rate Blood Pressure 153/73 O2 Sat by Pulse 97 Oximetry - X-Ray X-Ray #1 X-Ray: ankle - soft tissue swelling, no acute bony findings Interpretation: Reviewed by me X-Ray #2 X-Ray: foot - soft tissue swelling, no bony findings Interpretation: Reviewed by me - Progress/Reassessment Chief Complaint: Foot Injury/Pain Progress Note-Subjective: 09/27/16 15:21 discussed results with patient, because of neuropathy patient could have injured foot/ankle without noticing it, offered tylenol (again) patient declined, has scheduled follow up with Dr Lobo next week Departure Clinical Impression: Left ankle sprain Qualifiers: Encounter type: initial encounter Involved ligament of ankle: unspecified ligament Qualified Code(s): S93.402A - Sprain of unspecified ligament of left ankle, initial encounter - Departure Disposition: Home self-care Condition: Good Instructions: Ankle Sprain, [id number] Additional Instructions: keep the ankle wrapped if that feels better, take tylenol as needed for pain, follow up with Dr Lobo next week as scheduled Referrals: Celeste Andres MD [Primary Care Provider] - Dawn Lobo DPM [Staff Physician] -
[2016-09-27 15:25] VITALS: BP 132/71
== END 2016-09-27 15:29 | disposition home or self-care (01) ==
LOC: ER 13:56
DX: S93.402A Sprain of unspecified ligament of left ankle, initial encounter (principal); F17.200 Nicotine dependence, unspecified, uncomplicated; E11.9 Type 2 diabetes mellitus without complications; Z79.4 Long term (current) use of insulin; I10 Essential (primary) hypertension; Z95.5 Presence of coronary angioplasty implant and graft; I51.9 Heart disease, unspecified; K21.9 Gastro-esophageal reflux disease without esophagitis

== ENCOUNTER 2017-04-10 16:02 | Emergency (ER) | payer OTHER ==
[2017-04-10] MEDS ORDERED: KETOROLAC TROMETHAMINE 60 MG/2 ML VIAL IM ONE ×2 (16:39→16:46)
[2017-04-10] MEDS ORDERED: PROMETHAZINE HCL 50 MG/ML AMPUL IM ONE ×2 (16:40→16:46)
[2017-04-10] MEDS ORDERED: AMOX TR/POTASSIUM CLAVULANATE 875 MG TABLET PO ONE (16:40)
[2017-04-10] MEDS ORDERED: AMOX TR/POTASSIUM CLAVULANATE 875 MG TABLET ONE (16:46)
--- NOTE | 2017-04-10 16:52 | ERNOTE ---
Headache ER HPI - Narrative Date of Service: 04/10/17 - General Presenting Symptoms: headache Time Seen by Provider: 04/10/17 16:28 Source: patient, RN notes reviewed Exam Limitations: no limitations - Immun/Allergies/Home Medications Immunizations: IMMUNIZATION HX Immunizations Up to Date No History of Influenza Vaccine No Hx Pneumococcal Vaccination No Allergies/Adverse Reactions: Allergies insulin glargine [From Lantus] Adverse Reaction (Mild, Verified 09/27/16 14:08) BURNING AND REDNESS Home Medications: HOME MEDICATIONS Albuterol Sulfate [Ventolin HFA] 2 puff IH Q4H PRN 10/02/15 [Last Taken Unknown] Aspirin [Aspirin EC] 81 mg PO DAILY 10/02/15 [Last Taken Unknown] Clopidogrel Bisulfate [Plavix] 75 mg PO DAILY #30 tab 10/02/15 [Last Taken Unknown] Insulin Detemir [Levemir] 50 unit SQ BID 10/02/15 [Last Taken Unknown] Nitroglycerin [Nitrostat] 0.4 mg SL [id number] PRN 10/02/15 [Last Taken Unknown] metFORMIN HCL [Glucophage] 1,000 mg PO BIDWM 10/02/15 [Last Taken Unknown] Atorvastatin Calcium [Lipitor] 40 mg PO HS 08/09/16 [Last Taken Unknown] Cetirizine HCl [Zyrtec] 10 mg PO DAILY 08/09/16 [Last Taken Unknown] Insulin Lispro [Humalog] 20 unit SQ AC 08/09/16 [Last Taken Unknown] Irbesartan [Avapro] 37.5 mg PO DAILY 08/09/16 [Last Taken Unknown] Isosorbide Mononitrate [Imdur] 15 mg PO DAILY 08/09/16 [Last Taken 08/11/16] Levonorgestrel [Mirena] 1 each IY ONCE 08/09/16 [Last Taken Unknown] Metoprolol Tartrate [Lopressor] 12.5 mg PO BID 08/09/16 [Last Taken 08/11/16] Pantoprazole Sodium [Protonix] 40 mg PO DAILY 08/09/16 [Last Taken Unknown] Amox Tr/Potassium Clavulanate [Augmentin 875-125 Tablet] 875 mg PO Q12H #20 tab 04/10/17 [Last Taken Unknown] Duloxetine HCl [Cymbalta] 30 mg PO DAILY 04/10/17 [Last Taken Unknown] Fluticasone Propionate [Flonase] 1 spray NS DAILY 04/10/17 [Last Taken Unknown] Furosemide [Lasix] 40 mg PO DAILY 04/10/17 [Last Taken Unknown] Metoclopramide HCl [Reglan] 10 mg PO QID 04/10/17 [Last Taken Unknown] Oxybutynin Chloride [Ditropan] 5 mg PO TID 04/10/17 [Last Taken Unknown] Potassium Chloride [Klor-Con 10] 10 meq PO DAILY 04/10/17 [Last Taken Unknown] - Pain Pain Score: 10 - History of Present Illness Narrative: 41 year old female presents to the headache that began 5 days ago, but became worse at 0200 this morning. The pain woke her from sleep at that time. She went to the eye doctor today, thinking that the pain may be related to her vision, but the eye doctor told her that it looked as though she had sinusitis. She has been taking an allergy medication/decongestant and steroid nasal spray for 2 weeks for nasal congestion without improvement. She has also been taking OTC pain relievers without improvement. She reports that she does not usually have headaches. Her pain is in the frontal region. Timing of Headache: constant, worse, persistent Context Headache: Present: new onset Quality: Present: throbbing Severity Maximum: Present: severe Severity-Currently: Present: severe Headache frequency: Present: no recent headache Exacerbated by:: Reports: noise Prior Treament: Denies: recently seen, similar symptoms before Review of Systems - Review of Systems Constitutional: Present: fatigue, malaise EYE: Absent: eye pain, vision changes ENT: Present: nose congestion, nasal drainage. Absent: ear pain, sore throat Respiratory: Absent: shortness of breath, cough Cardiology: Absent: chest pain, syncope Gastrointestinal/Abdominal: Absent: nausea, vomiting Genitourinary: Present: no symptoms reported Musculoskeletal: Present: neck pain. Absent: muscle pain, joint pain Skin: Absent: rash, lesions, lumps Neurological: Present: headache. Absent: dizziness/light-headedness, weakness Endocrine: Present: no symptoms reported Hematologic/Lymphatic: Present: no symptoms reported Psych: Present: no symptoms reported - Patient's Past Medical History Patient History - Medical: Diabetes Type 2 Insulin Dependent, GERD, Other Patient History - Cardiac/Respiratory: Coronary Heart Disease, COPD, Hypertension, Hyperlipidemia Patient History - Cancer: No Hx of Cancer Patient History - Surgical Procedures: Appendectomy, Cardiac stent Patient History - Other: None - Family History Mother Family History - Medical: No pertinent hx Family History - Cardiac/Respiratory: No pertinent hx Family History - Cancer: No pertinent family hx Father Family History - Medical: , Diabetes Type 2 Family History - Cardiac/Respiratory: Coronary Heart Disease, Hypertension Family History - Cancer: Lung, Stomach, Throat - Social History Living Situations: home Abuse History: No History of abuse Psych History: No pertinent hx Smoking Status: Current every day smoker Have you smoked in the past 12 months: Yes Do you dip or chew tobacco: No Patient requests Smoking Cessation Consult: No Initiate information on Smoking Cessation: No Alcohol Use: none Drug Use: none - Immunizations Immunizations Up to Date: No Hx Pneumococcal Vaccination: No History of Influenza Vaccine: No Physical Exam - Physical Exam General Appearance: Present: wd/wn, alert, no apparent distress Head Exam: Present: no evidence of injury, tenderness - Frontal sinuses. Absent : swelling Eye Exam: Normal inspection: bilateral, PERRL: bilateral Ears, Nose, Throat: Present: nasal congestion, sinus pain/drainage, normal pharynx. Absent: hearing decreased, abnormal TM (R), abnormal TM (L) Neck: Present: normal inspection, nontender, supple Respiratory: Present: no respiratory distress, normal breath sounds, no accessory muscle use, lungs clear Cardiovascular/Chest: Present: regular rate, rhythm, no murmur Extremity Exam: Present: normal inspection, normal range of motion Neurological Exam: Present: alert, oriented, normal mood/affect, no motor/ sensory deficits Skin Exam: Present: normal color, warm/dry ED Progress - Vital Signs Patient's Vital Signs:: I have reviewed the patient's vital signs. Vital Signs: Vital Signs 04/10/17 16:06 Temperature 36.9 C Pulse Rate 85 Respiratory 17 Rate Blood Pressure 129/71 O2 Sat by Pulse 97 Oximetry - Progress/Reassessment Chief Complaint: Headache Progress:: Improved Departure Clinical Impression: Sinusitis, acute Qualifiers: Sinusitis location: frontal Recurrence: non-recurrent Qualified Code(s): J01.10 - Acute frontal sinusitis, unspecified - Departure Disposition: Home Follow Up Needed Condition: Stable Instructions: Sinusitis, Adult, [id number] Additional Instructions: Continue your routine medications but stop the allergy medication Use a sinus rinse twice a day Finish all 10 days of your antibiotic - take with food Follow up with your doctor if symptoms persist, or return to the ER if symptoms worsen Referrals: Celeste Andres MD [Primary Care Provider] - Prescriptions: Amox Tr/Potassium Clavulanate [Augmentin 875-125 Tablet] 875 mg PO Q12H #20 tab
[2017-04-10 16:58] VITALS: BP 118/67
== END 2017-04-10 17:13 | disposition home or self-care (01) ==
LOC: ER 16:02
DX: J01.10 Acute frontal sinusitis, unspecified (principal); E11.9 Type 2 diabetes mellitus without complications; Z79.4 Long term (current) use of insulin; K21.9 Gastro-esophageal reflux disease without esophagitis; I50.9 Heart failure, unspecified; I10 Essential (primary) hypertension; E78.5 Hyperlipidemia, unspecified; F17.200 Nicotine dependence, unspecified, uncomplicated